=== PATIENT | female | born 1930 | race Caucasian/White ===

== ENCOUNTER → 2020-03-17 | Outpatient (CLI) | payer OTHER ==
[~2020-03-17] MED LIST: ACYCLOVIR800 MG PO; AMLODIPINE5 MG PO; ASPIRIN81 M1 PO; CALCIUM 600 W/V1 TAB PO; CIPROFLOXACIN500 MG PO; FAMOTIDINE40 MG PO; FLAGYL500 MG PO; FOSAMAX70 MG PO; LISINOPRIL40 MG PO; LOVASTATIN40 MG PO; METOPROLOL SR25 MG PO; VITAMIN B121000 MCG PO; VITAMIN D31000 IU PO
== END | disposition home or self-care (01) ==
LOC: RAD 08:44 → CARD 09:30
PROVIDERS: ATTEND Nurse Practitioner Primary Care
DX: I08.1 Rheumatic disorders of both mitral and tricuspid valves (principal); I27.20 Pulmonary hypertension, unspecified; M81.0 Age-related osteoporosis without current pathological fracture; I10 Essential (primary) hypertension

== ENCOUNTER 2021-02-08 11:26 | Emergency (ER) | payer OTHER ==
[~2021-02-08] VITALS: Ht 152.4 cm; Wt 58.1 kg
== END 2021-02-08 14:56 | disposition home or self-care (01) ==
LOC: ED 11:26
DX: S80.02XA Contusion of left knee, initial encounter (principal); S80.01XA Contusion of right knee, initial encounter; S60.212A Contusion of left wrist, initial encounter; S00.83XA Contusion of other part of head, initial encounter; Z79.899 Other long term (current) drug therapy; Z79.82 Long term (current) use of aspirin; W18.39XA Other fall on same level, initial encounter; Y93.89 Activity, other specified; Y92.89 Other specified places as the place of occurrence of the external cause; Y99.8 Other external cause status